=== PATIENT | female | born 1965 | race American Indian/Alaskan Native ===

== ENCOUNTER 2018-04-26 16:12 | Emergency (ER) | payer MEDICAID ==
[2018-04-26 16:23] VITALS: BP 143/61
--- NOTE | 2018-04-26 16:24 | Emergency Department Report ---
Chief Complaint: Extremity Injury, Lower Stated Complaint: (L) LEG FOOT Time Seen by Provider: 04/26/18 16:22 - HPI History of Present Illness: This is a 52 y.o. female that presents with left lateral foot pain from a fall yesterday. - ROS Review of Systems: left lateral foot pain - Exam Vital Signs: Vital Signs 04/26/18 16:21 Temperature 98.2 F Pulse Rate 76 Respiratory 18 Rate Blood Pressure 143/61 O2 Sat by Pulse 100 Oximetry MSE screening note: Focused history and physical exam performed. Due to findings the following was ordered: XR of left foot Fast track for further evaluation. ED Disposition for MSE Condition: Stable
--- NOTE | 2018-04-26 17:58 | XRay Report ---
PROCEDURE: XR FOOT 3+V LT TECHNIQUE: 52-year-old female with pain in lateral left foot HISTORY: pain to lateral side no trauma reported COMPARISONS: None FINDINGS: Normal bony mineralization. No fracture or dislocation. No radiopaque foreign body or soft tissue gas. Preserved longitudinal arch. Mild dorsal and lateral midfoot soft tissue prominence. Small Achilles calcaneal spur. IMPRESSION: No fracture or dislocation identified. Mild soft tissue edema over the lateral mid foot and dorsum. No radiopaque foreign body identified.. This document is electronically signed by Ally Merchant MD., April 26 2018 05:56:10 PM ET
--- NOTE | 2018-04-26 19:08 | Emergency Department Report ---
ED Lower Extremity HPI - General Chief Complaint: Extremity Injury, Lower Stated Complaint: (L) LEG FOOT Time Seen by Provider: 04/26/18 16:22 Source: patient Mode of arrival: Ambulatory Limitations: No Limitations - History of Present Illness Initial Comments: 52-year-old [place] female comes to emergency room complaining of left foot pain from twisting her foot yesterday. Patient is to swelling. Patient left to the ibuprofen yesterday when it happened. Patient is taking no pain medication as of today. Patient does have a past medical history of diabetes hypertension. MD Complaint: foot injury (left) -: days(s) (1) Injury: Foot: Left Type of Injury: inversion Place: home Severity scale (0 -10): 6 Context: walking Associated Symptoms: swelling, ambulatory Treatments Prior to Arrival: other (none) - Related Data Allergies Allergy/AdvReac Type Severity Reaction Status Date / Time No Known Allergies Allergy Unverified 04/26/18 16:15 ED Review of Systems ROS: Stated complaint: (L) LEG FOOT Other details as noted in HPI ED Past Medical Hx - Past Medical History Previous Medical History?: Yes Hx Diabetes: Yes - Surgical History Past Surgical History?: Yes Additional Surgical History: Hysterectomy, spinal surgery - Social History Smoking Status: Never Smoker Substance Use Type: None ED Physical Exam - General Limitations: No Limitations General appearance: alert - Head Head exam: Present: atraumatic - Eye Eye exam: Present: EOMI - ENT ENT exam: Present: mucous membranes moist - Expanded Lower Extremity Exam Left Foot/Toe exam: Present: full ROM, tenderness, swelling (lateral). Absent: abrasion, laceration, ecchymosis, deformity, dislocation, erythema Neuro vascular tendon exam: Present: no vascular compromise Gait: Positive: observed and normal - Neurological Exam Neurological exam: Present: alert, oriented X3 - Psychiatric Psychiatric exam: Present: normal affect, normal mood - Skin Skin exam: Present: warm, dry, intact, normal color. Absent: rash ED Course Vital Signs 04/26/18 16:21 Temperature 98.2 F Pulse Rate 76 Respiratory 18 Rate Blood Pressure 143/61 O2 Sat by Pulse 100 Oximetry ED Lower Extremity MDM - Radiology Data Radiology results: report reviewed X-ray left foot 3 view. Impression no fractures or dislocation identified. Mild soft tissue edema over the lateral midfoot and dorsum. No radiopaque foreign body identified. - Medical Decision Making Patient has been evaluated by this provider in [facility]. Patient was given ice pack to place on her foot. Discussed the patient will place an Memo bandage she can take [id number] ibuprofen if her symptoms persist or gets worse to follow her primary care provider. Critical care attestation.: If time is entered above; I have spent that time in minutes in the direct care of this critically ill patient, excluding procedure time. ED Disposition Clinical Impression: Acute pain of left foot Disposition: DC-01 TO HOME OR SELFCARE Is pt being admited?: No Does the pt Need Aspirin: No Condition: Stable Instructions: Arthralgia (ED) Additional Instructions: Please place ice elevate her foot take [id number] ibuprofen or Tylenol for pain management. Symptoms persist or gets worse follow-up with primary care provider. Referrals: JOYCE WORRELL MD [Primary Care Provider] - 3-5 Days
== END 2018-04-26 19:34 | disposition home or self-care (01) ==
LOC: ED 16:12
DX: M79.672 Pain in left foot (principal); R22.42 Localized swelling, mass and lump, left lower limb; E11.9 Type 2 diabetes mellitus without complications; Z90.710 Acquired absence of both cervix and uterus
CPT/HCPCS: 99283